=== PATIENT | male | born 1940 | race Hispanic/Latino ===

== ENCOUNTER 2019-04-02 12:03 | Outpatient (CLI) | payer MEDICARE, OTHER | END 2019-04-02 12:04 | disposition home or self-care (01) | LOC: LAB 12:03 ==

== ENCOUNTER 2019-04-09 10:20 | Outpatient (CLI) | payer MEDICARE, OTHER | END 2019-04-09 10:21 | disposition home or self-care (01) | LOC: LAB 10:20 ==

== ENCOUNTER 2019-04-14 10:49 | Outpatient (CLI) | payer MEDICARE, OTHER | END 2019-04-14 10:50 | disposition home or self-care (01) | LOC: LAB 10:49 ==